=== PATIENT | female | born 1940 | race Caucasian/White ===

== ENCOUNTER 2016-07-30 21:49 | Emergency (ER) | payer MEDICARE, OTHER ==
--- NOTE | ~2016-07-30 | PREOPHP ---
PreOp History and Physical [address] [place]. [address] NAME: TEO WONG : 42 STATUS : DEP [facility]#: [id number] AGE: 76 ADM/REG DATE : 07/30/16 MR#: [id number] REPORT SERV DATE: 08/04/16 DICTATED BY: ORLANDO TREVINO III DATE: 08/03/16 REPORT STATUS : Cancelled TRANSCRIBED BY: MODAnamika DATE: 08/03/16 HISTORY OF PRESENT ILLNESS: This 76-year-old female comes to the operating room for laparoscopic cholecystectomy, possible laparotomy, for symptomatic cholelithiasis and cholecystitis. The patient complains of chronic history of intermittent episodes of epigastric right upper quadrant abdominal pain. This pain is associated with nausea and food intolerance. The patient recently had an episode of biliary colic requiring evaluation in the emergency room. The patient comes now for laparoscopic cholecystectomy, possible laparotomy. MEDICATIONS: Aspirin, telmisartan, vitamin B12, albuterol, Spiriva, prednisone, Symbicort, Levaquin. PAST MEDICAL HISTORY: Includes COPD and hypertension. PAST SURGICAL HISTORY: Status post hysterectomy. FAMILY HISTORY: Positive heart disease and diabetes. SOCIAL HISTORY: The patient has no history tobacco or alcohol abuse. She is . ALLERGIES: STEROIDS. REVIEW OF SYSTEMS: The patient complains of weight gain and abdominal pain. Her 14-point review of systems otherwise unremarkable. PHYSICAL EXAMINATION: GENERAL: An obese female, in no acute distress. She is alert and oriented x3. HEENT: Unremarkable. NEUROLOGIC: Cranial nerves 2 through 12 are normal. LUNGS: Clear. CARDIAC: Normal. ABDOMEN: Soft and nontender. EXTREMITIES: Normal. VITAL SIGNS: Blood pressure 133/73, pulse 97, temperature 97.6. ASSESSMENT: A 76-year-old female with: 1. Symptomatic cholelithiasis, cholecystitis, and recurrent episodes of biliary colic, requiring evaluation in the emergency room. 2. chronic obstructive pulmonary disease, apparently steroid dependent. 3. Obesity. 4. Hypertension. PLAN: The patient comes to the operating room now for laparoscopic cholecystectomy, possible laparotomy. This procedure, the risks, benefits, and alternatives, including not limited to the risk for bleeding, infection, common bile duct injury, bile leak, retained common bile stone, enterotomy, injury to any abdominal structure, possible need for laparotomy, PreOp History and Physical [address] [place]. [address] NAME: TEO WONG : 44 STATUS : DEP ER PAT#: [id number] AGE: 76 ADM/REG DATE : 07/30/16 MR#: [id number] REPORT SERV DATE: 08/04/16 DICTATED BY: ORLANDO TREVINO III DATE: 08/03/16 REPORT STATUS : Cancelled TRANSCRIBED BY: DESMOND DATE: 08/03/16 postoperative diarrhea, and unforeseen complications including deep venous thrombosis, pulmonary embolus, myocardial infarction, stroke, pneumonia, and , have been explained to the patient prior to surgery. The fact that this is a major operation with risk for major morbidity and mortality, no guaranteed relief of her symptoms has been explained. The expected length of recovery with open laparoscopic procedures has been explained. The patient had questions, which were answered. She clearly understands the risks and agrees to surgery as planned. HEENA/DESMOND Orlando Trevino III, M.D. / [id number] CC: Jeff Flores M.D.
[2016-07-30 18:20] LABS: BASOPHILS 0.5 %; BASOPHILS ABSOLUTE 0.03 10/3/uL (0.0-0.16); EOSINOPHILS 4.7 %; EOSINOPHILS ABSOLUTE 0.31 10/3/uL (0.0-0.53); ER CBC TAT 0 Hrs 03 Mins; HEMATOCRIT 34.3 % (36.0-48.0); IMMATURE GRANULOCYTES 0.2 %; IMMATURE GRANULOCYTES ABSOLUTE 0.01 10/3/uL (0.0-0.11); LYMPHOCYTES 23.3 %; LYMPHOCYTES ABSOLUTE 1.53 10/3/uL (0.67-4.30); MANUAL DIFF NO %; MEAN CORPUS HGB CONC 32.1 g/dL (32.0-36.0); MEAN CORPUSCULAR HEMOGLOB 27.6 pg (26.0-34.0); MEAN CORPUSCULAR VOLUME 86.2 fL (80-100); MEAN PLATELET VOLUME 9.4 fL (9.2-13.0); MONOCYTES 5.6 %; MONOCYTES ABSOLUTE 0.37 10/3/uL (0.21-1.20); NEUTROPHILS 65.7 %; NEUTROPHILS ABSOLUTE 4.33 10/3/uL (2.02-8.40); PLATELET COUNT 265 10/3/uL (150-400); RBC DISTRIBUTION WIDTH 14.1 % (12.0-16.0); RED CELL COUNT 3.98 10/6/uL (4.0-5.6); WHITE BLOOD CELLS 6.6 10/3/uL (4.5-10.5)
[2016-07-30 18:29] LABS: INTERNATIONAL NORMAL RATI 1.1 UNITS (-); PARTIAL THROMBO TIME 24.4 SEC (22.5-37.2); PROTIME (NOT ORD) 13.9 SEC (12.0-14.5)
[2016-07-30 18:50] LABS: BUN (BLOOD UREA NITROGEN) 18 MG/DL (6-23); CALCIUM, SERUM 8.9 MG/DL (8.5-10.4); CHEST PAIN PROFILE TAT 0 Hrs 33 Mins; CHLORIDE, SERUM 107 MMOL/L (96-112); CO2 (CARBON DIOXIDE) 25 MMOL/L (24-34); CREATININE 0.91 MG/DL (0.55-1.02); GFR AFRICAN AMERICAN 72 ML/MIN (>=60); GFR NON AFRICAN AMERICAN 62 ML/MIN (>=60); GLUCOSE, SERUM 109 MG/DL (60-99); SODIUM, SERUM 141 MMOL/L (135-148); TROPONIN I <0.02 NG/ML (<0.05)
[~2016-07-30 21:49] MED LIST: ASAB PO; B121000P IM; LEVAQUIN750 MG PO; MICARDIS80 PO; P10 PO; SPIRIVA INH; SYMBICORT 160/41 INH INH; VENTOLIN HFA INH
[2016-07-30 22:29] LABS: ALBUMIN 3.5 G/DL (3.5-5.0); ALKALINE PHOSPHATASE 97 U/L (45-117); DIRECT BILIRUBIN < 0.1 MG/DL (0.0-0.4); INDIRECT BILIRUBIN(NOT ORDER) 0.3 MG/DL (0.1-0.9); SGOT(AST) 20 U/L (5-40); SGPT(ALT) 21 U/L (5-65); TOTAL BILIRUBIN 0.4 MG/DL (0-1.2); TOTAL PROTEIN 7.2 G/DL (6.0-8.5)
[2016-07-30 22:43] LABS: ASCORBIC ACID (UR NOT ORDER) NEG (NEG); BILIRUBIN, URINE NEGATIVE (NEG); ER URINALYSIS TAT 0 Hrs 10 Mins; KETONE, URINE NEGATIVE (NEG); LEUKOCYTE ESTERASE(NOT OR TRACE (NEG); NITRITE (URINE) NEG (NEG); WBC (NOT ORDERED) (RFLEX) 1 (0-5)
== END 2016-07-31 00:44 | disposition home or self-care (01) ==
LOC: ER 21:49
PROVIDERS: Emergency Medicine
DX: K80.20 Calculus of gallbladder without cholecystitis without obstruction (principal); J80 Acute respiratory distress syndrome; J44.9 Chronic obstructive pulmonary disease, unspecified; I10 Essential (primary) hypertension; K21.9 Gastro-esophageal reflux disease without esophagitis; F17.200 Nicotine dependence, unspecified, uncomplicated; Z90.710 Acquired absence of both cervix and uterus; Z88.8 Allergy status to other drugs, medicaments and biological substances; Z79.82 Long term (current) use of aspirin; Z79.52 Long term (current) use of systemic steroids; Z79.899 Other long term (current) drug therapy
CPT/HCPCS: 71020; 74176; 80048; 80076; 81001; 83690; 83735; 83880; 84484; 85025; 85610; 85730; 93005; 99285

== ENCOUNTER 2016-08-13 10:00 | Day surgery (SDC) | payer MEDICARE, OTHER ==
[2016-08-09 14:23] LABS: A/G RATIO 1.2 (0.7-1.9); ALBUMIN 3.7 G/DL (3.5-5.0); ALKALINE PHOSPHATASE 102 U/L (45-117); CALCIUM, SERUM 9.7 MG/DL (8.5-10.4); CHLORIDE, SERUM 103 MMOL/L (96-112); CO2 (CARBON DIOXIDE) 28 MMOL/L (24-34); CREATININE 0.65 MG/DL (0.55-1.02); GFR AFRICAN AMERICAN 101 ML/MIN (>=60); GFR NON AFRICAN AMERICAN 87 ML/MIN (>=60); GLUCOSE, SERUM 91 MG/DL (60-99); POTASSIUM, SERUM 4.6 MMOL/L (3.5-5.3); SGOT(AST) 12 U/L (5-40); SGPT(ALT) 18 U/L (5-65); SODIUM, SERUM 138 MMOL/L (135-148); TOTAL BILIRUBIN 0.5 MG/DL (0-1.2); TOTAL PROTEIN 6.7 G/DL (6.0-8.5)
[2016-08-09 14:24] LABS: BUN (BLOOD UREA NITROGEN) 12 MG/DL (6-23)
--- NOTE | ~2016-08-13 | OP ---
[address] Of [address] [place]. [address] NAME: TEO WONG : 44 STATUS : PRE [facility] PAT#: [id number] AGE: 76 ADM/REG DATE : MR#: [id number] REPORT SERV DATE: 08/14/16 DICTATED BY: ORLANDO TREVINO III DATE: 08/14/16 REPORT STATUS : Draft TRANSCRIBED BY: MODL DATE: 08/14/16 DATE OF PROCEDURE: 08/13/2016 PREOPERATIVE DIAGNOSES: Symptomatic cholelithiasis and cholecystitis and recent episode of acute biliary colic, required evaluation in the emergency room. POSTOPERATIVE DIAGNOSES: Symptomatic cholelithiasis and cholecystitis and recent episode of acute biliary colic, required evaluation in the emergency room. PROCEDURE: Laparoscopic cholecystectomy. SURGEON: Orlando Trevino M.D. ANESTHESIA: General with intubation. COMPLICATIONS: None. ESTIMATED BLOOD LOSS: Less than 30 mL. SPECIMENS: Gallbladder. DRAINS: None. LAP AND SPONGE COUNT: Correct x3. BRIEF HISTORY: This 76-year-old female presented with evidence for symptomatic cholelithiasis and cholecystitis. It was felt that laparoscopic cholecystectomy, possible laparotomy was indicated. This procedure, the risks, benefits, alternatives, including but not limited to the risk for bleeding, infection, common bile duct injury, bile leak, retained common bile stone, enterotomy, or injury to any abdominal structure, the definite possible need for laparotomy, possible persistence of her symptoms unrelieved by surgery, possibility of postoperative diarrhea or incisional hernia, and unforeseen complications including deep venous thrombosis, pulmonary embolus, myocardial infarction, stroke, pneumonia, and , were fully and completely explained to the patient and her family prior to surgery. The fact that this was a major operation with risk for major morbidity and mortality with no guarantee for relief of her symptoms was explained. The expected length of recovery with both open and laparoscopic surgery was explained. Their questions were answered. They understood the risks and agreed to surgery as planned. FINDINGS: The patient had evidence for chronic cholecystitis. The gallbladder resendez were markedly thickened, inflamed, and edematous, and there were adhesions between the gallbladder and omentum consistent with chronic cholecystitis. The liver and remainder of the upper abdomen were otherwise unremarkable as far as we could determine through the laparoscope. PROCEDURE IN DETAIL: After being appropriately identified and after discussing the risks of [address] [place] [address] NAME: TEO WONG : 44 [place]US : [place] [facility]#: [id number] AGE: 76 ADM/REG DATE : MR#: [id number] REPORT SERV DATE: 08/14/16 DICTATED BY: ORLANDO TREVINO III DATE: 08/14/16 REPORT STATUS : Draft TRANSCRIBED BY: MODL DATE: 08/14/16 surgery with the patient and her family in the preoperative area, the patient was taken to the operating room and placed in the supine position on the operating room table. General anesthesia was administered. She was intubated without difficulty. The abdomen was prepped and draped sterilely in the usual fashion. After an appropriate "time-out" per JCAHO standards, a small transverse incision was made below the umbilicus. The skin and fascia on either side was elevated with towel clips. A Veress needle was placed through the incision into the peritoneal cavity. Correct position of the needle in the peritoneal cavity was confirmed by the hanging drop test. The abdominal cavity was then insufflated to about 13 mmHg with carbon dioxide. Correct position of air in the peritoneal cavity was confirmed by palpation. The Veress needle was removed and replaced with 10 mm trocar. The laparoscope was placed through this. The patient was placed in the reverse Trendelenburg position and to her left. A second 10 mm trocar was placed just below the xiphoid process, to the right of the falciform ligament, under direct vision with the laparoscope. Two 5 mm trocars were placed along the right subcostal margin, one in the midaxillary line, the other in the midclavicular line. These were also placed under direct vision with the laparoscope. The upper abdomen was inspected. The gallbladder appeared to be chronically diseased. The gallbladder resendez were thickened and inflamed consistent chronic cholecystitis. The liver and remainder of the upper abdomen were otherwise unremarkable as far as we could determine through the laparoscope. The appropriate instruments were placed through the trocars. The gallbladder was grasped and the infundibulum of the gallbladder was retracted laterally and inferiorly so as to expose the triangle of Calot. Using careful sharp and blunt dissection, the cystic duct was carefully and meticulously defined proximally and distally. The cystic duct was fairly long. The junction of the cystic duct with the common bile duct was appreciated, but not skeletonized. The cystic artery was similarly defined proximally and distally. The fibrous and fatty tissue between these structures was divided so as to clearly identify the critical angle. Once these structures were clearly defined, the cystic duct was clipped using two clips on the common bile duct side and one on the gallbladder side, all placed as close to the gallbladder as possible, taking care not encroach upon or injure the common bile duct in any way. The cystic duct was then divided between these clips as close to the gallbladder as possible. We elected not to perform a cholangiogram because there was no preoperative or intraoperative evidence for biliary dilatation and because the patient's preoperative liver enzymes were normal and because her biliary anatomy was clearly defined. Again, the structure was not divided or clipped until the critical angle and triangle of Calot had been clearly identified. The cystic artery was then similarly clipped and divided as close to the gallbladder as possible. Using the spatula and the cautery, the gallbladder was carefully dissected from the liver bed. This went very well. Before the gallbladder was completely removed, the gallbladder bed and portal areas were irrigated numerous times with saline. The saline was aspirated dry. This process was repeated several times until hemostasis was meticulously and thoroughly assured in all areas. It was also assured that the clips in the portal areas were in good position and there was no extravasation of bile from any accessory bile duct. Once this was assured, the gallbladder was completely dissected away from the liver and placed in the Endopouch. The liver bed was elevated, irrigated, and inspected for meticulous and thorough hemostasis and for absence of any biliary extravasation and to be certain that the clips were in good position. Once this was assured, the gallbladder and Endopouch were brought out through the infraumbilical incision and placed in the laparoscope through the subxiphoid port. The fascia of the infraumbilical incision was closed with 0 Vicryl suture. The [facility] two Record Of Operation [facility] [address] [place]. [address] NAME: TEO WONG : 44 [place]US : [place] [facility]#: [id number] AGE: 76 ADM/REG DATE : MR#: [id number] REPORT SERV DATE: 08/14/16 DICTATED BY: ORLANDO TREVINO III DATE: 08/14/16 REPORT STATUS : Draft TRANSCRIBED BY: DESMOND DATE: 08/14/16 trocars were removed. These two lower trocar sites were inspected on the underside for hemostasis with the laparoscope. Once this was assured, the subxiphoid trocar was removed under direct vision with the laparoscope to assure hemostasis in this incision. The air was removed from the peritoneal cavity through this incision. The skin incisions were inspected for hemostasis, they were closed with running subcuticular 4-0 Monocryl stitches. They were injected with one-half percent Marcaine. Dressings were applied. Anesthesia was reversed and the patient was taken to the recovery room in stable condition. The patient tolerated the procedure well. Her family was informed of the results of surgery. The patient will be discharged later when she is stable, comfortable and tolerating liquids and able to void and ambulate. Her family was advised that she should remain on a liquid diet today and advance this as tolerated to a regular diet tomorrow. She should keep wounds clean and dry for 48 hours and that she should not drive for 3 to 4 days after surgery or while using narcotics or Phenergan. They were advised that she should resume her usual medications. She was given a prescription for a narcotic and Phenergan, which she was advised to not take while driving. She was asked to return to the office in two weeks for followup or sooner for nausea, vomiting, fever, chills, wound drainage, abdominal pain, weakness, or other problems prior to that time. RHJ/DESMOND Orlando Trevino III, M.D. / [id number] CC: Librado Vargas III, M.D.
--- NOTE | ~2016-08-13 | PREOPHP ---
PreOp History and Physical [address] [place] [place]. [address] NAME: TEO WONG : 44 STATUS : PRE [facility]#: [id number] AGE: 76 ADM/REG DATE : MR#: [id number] REPORT SERV DATE: 08/12/16 DICTATED BY: ORLANDO TREVINO III DATE: 08/03/16 REPORT STATUS : Draft TRANSCRIBED BY: MODL DATE: 08/03/16 HISTORY OF PRESENT ILLNESS: This 76-year-old female comes to the operating room for laparoscopic cholecystectomy, possible laparotomy, for symptomatic cholelithiasis and cholecystitis. The patient complains of chronic history of intermittent episodes of epigastric right upper quadrant abdominal pain. This pain is associated with nausea and food intolerance. The patient recently had an episode of biliary colic requiring evaluation in the emergency room. The patient comes now for laparoscopic cholecystectomy, possible laparotomy. MEDICATIONS: Aspirin, telmisartan, vitamin B12, albuterol, Spiriva, prednisone, Symbicort, Levaquin. PAST MEDICAL HISTORY: Includes COPD and hypertension. PAST SURGICAL HISTORY: Status post hysterectomy. FAMILY HISTORY: Positive heart disease and diabetes. SOCIAL HISTORY: The patient has no history tobacco or alcohol abuse. She is . ALLERGIES: STEROIDS. REVIEW OF SYSTEMS: The patient complains of weight gain and abdominal pain. Her 14-point review of systems otherwise unremarkable. PHYSICAL EXAMINATION: GENERAL: An obese female, in no acute distress. She is alert and oriented x3. HEENT: Unremarkable. NEUROLOGIC: Cranial nerves 2 through 12 are normal. LUNGS: Clear. CARDIAC: Normal. ABDOMEN: Soft and nontender. EXTREMITIES: Normal. VITAL SIGNS: Blood pressure 133/73, pulse 97, temperature 97.6. ASSESSMENT: A 76-year-old female with: 1. Symptomatic cholelithiasis, cholecystitis, and recurrent episodes of biliary colic, requiring evaluation in the emergency room. 2. chronic obstructive pulmonary disease, apparently steroid dependent. 3. Obesity. 4. Hypertension. PLAN: The patient comes to the operating room now for laparoscopic cholecystectomy, possible laparotomy. This procedure, the risks, benefits, and alternatives, including not limited to the risk for bleeding, infection, common bile duct injury, bile leak, retained common bile stone, enterotomy, injury to any abdominal structure, possible need for laparotomy, PreOp History and Physical [address] [place] [address] NAME: TEO WONG : 44 [place]US : [place] [facility] [place]#: [id number] AGE: 76 ADM/REG DATE : MR#: [id number] REPORT SERV DATE: 08/12/16 DICTATED BY: ORLANDO TREVINO III DATE: 08/03/16 REPORT STATUS : Draft TRANSCRIBED BY: MODL DATE: 08/03/16 postoperative diarrhea, and unforeseen complications including deep venous thrombosis, pulmonary embolus, myocardial infarction, stroke, pneumonia, and , have been explained to the patient prior to surgery. The fact that this is a major operation with risk for major morbidity and mortality, no guaranteed relief of her symptoms has been explained. The expected length of recovery with open laparoscopic procedures has been explained. The patient had questions, which were answered. She clearly understands the risks and agrees to surgery as planned. RHAdali/DESMOND Orlando Trevino III, M.D. / [id number] CC: Librado Vargas III, M.D.
[2016-08-13 14:56] LABS: HEMOGLOBIN 11.1 g/dL (12.0-16.0)
== END 2016-08-13 23:59 | disposition home or self-care (01) ==
LOC: SDC 10:00
PROVIDERS: Surgery
PROC: 0FT44ZZ Resection of Gallbladder, Percutaneous Endoscopic Approach (ICD-10-PCS; principal; 2016-08-13 09:00)
DX: K80.10 Calculus of gallbladder with chronic cholecystitis without obstruction (principal); J44.9 Chronic obstructive pulmonary disease, unspecified; I10 Essential (primary) hypertension; E66.9 Obesity, unspecified; K21.9 Gastro-esophageal reflux disease without esophagitis; D64.9 Anemia, unspecified; Z90.710 Acquired absence of both cervix and uterus; Z82.49 Family history of ischemic heart disease and other diseases of the circulatory system
CPT/HCPCS: 80053; 85014; 85018; 88304; 94640; J0690; J1170; J2250; J2270; J2405; J2710; J3010